=== PATIENT | male | born 1950 | race Caucasian/White ===

== ENCOUNTER → 2018-09-13 | Outpatient (CLI) | payer MEDICARE, BC ==
--- NOTE | 2018-09-14 08:30 | RADIOLOGY REPORT (SQ) ---
EXAM DESCRIPTION: MRI LT LOWER JOINT WITHOUT COMPLETED DATE/TIME: 09/13/2018 8:56 pm REASON FOR STUDY: M25.562 PAIN IN LEFT KNEE M25.562 PAIN IN LEFT KNEE COMPARISON: 06/21/2014 left knee MRI TECHNIQUE: Leftknee images acquired and stored on PACS. Multiplanar images include fat sensitive se quences as T1, water sensitive sequences as FST2 or STIR, cartilage sensitive sequences as FSPD, and gradient echo sequences. LIMITATIONS: None. FINDINGS: JOINT AND BURSAE: Physiologic joint space fluid in the suprapatellar recess. 10 mm loose body along the popliteus tendon sheath coronal image 25. 12 mm loose body along the posterior aspect medial tibial plateau on sagittal image 11 BONE CORTEX AND MARROW: No marrow signal abnormalities worrisome for aggressive marrow replacement pr ocess or occult fracture. ACL: Torn, best shown on sagittal image 17 PCL: Intact. MCL: Intact. No periligamentous edema or fluid. LCL: Intact. No periligamentous edema or fluid. MEDIAL MENISCUS: Diffusely degenerated, with only a small amount of residual meniscus along the midbo dy and posterior horn LATERAL MENISCUS: Diffusely small but intact. MEDIAL COMPARTMENT: High-grade chondromalacia with [id number] appearance medial compartment. Moder ate medial edge medial compartment bony spurring. LATERAL COMPARTMENT: Moderate chondromalacia lateral compartment. Small osteophytes along the latera l edge of the lateral compartment. PATELLA: Mild medial patellar facet chondromalacia. No subchondral cysts. Medial and lateral retinacu la intact. EXTENSOR MECHANISM: Intact. Quadriceps and patella tendons normal. SOFT TISSUES: Adjacent muscles and subcutaneous tissues normal. Normal flow void in popliteal artery and vein. OTHER: No other significant finding. 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
== END ==
LOC: RAD 20:02
PROVIDERS: ATTEND Orthopaedic Surgery Sports Medicine
DX: M25.562 Pain in left knee (principal); M22.42 Chondromalacia patellae, left knee

== ENCOUNTER 2019-06-19 09:09 | Day surgery (SDC) | payer OTHER, MEDICARE, BC ==
[~2019-06-19 09:09] MED LIST: CHONDR SU A NA/HYALUR INTRAOC KIT (SURGICARE) ONE; DORZOLAMIDE HCL 2%/TIMOLOL MALEAT 0.5% OPH SOLN 10 ML OD PRN; EPINEPHRINE INJ/PF 1 MG/1 ML AMPULE ONE; KETOROLAC TROMETHAMINE 0.45% 4 DROP/0.4 ML DROPERETTE OD PRN; LIDOCAINE 1% INJ-PF (10 MG/ML) 30 ML SDV ONE; TOBRAMYCIN SULFATE/DEXAMETH OPH OINTMENT 3.5 GM ONE
[2019-06-19] MEDS: BESIFLOXACIN HCL 0.6% OPH SUSP 5 ML BOTTLE OD PRN ×3 (10:08→10:56)
[2019-06-19] MEDS: TROPICAMIDE 1% OPH SOLN 15 ML OD PRN ×3 (10:08→10:26)
[2019-06-19] MEDS: CYCLOPENTOLATE 0.2%/PHENYLEPHRINE 1% OPH SOLN 2 ML OD PRN ×3 (10:08→10:27)
[2019-06-19] MEDS: TETRACAINE HCL 0.5% OPH SOLN 4 ML OD PRN ×3 (10:08→10:32)
[2019-06-19] MEDS ORDERED: FENTANYL CITRATE INJ/PF 100 MCG/2 ML AMPUL ONE (10:18)
[2019-06-19] MEDS ORDERED: MIDAZOLAM 2 MG/2 ML INJ ONE (10:18)
== END 2019-06-19 11:35 | disposition home or self-care (01) ==
LOC: SC 09:09
PROVIDERS: ATTEND Ophthalmology
DX: H25.11 Age-related nuclear cataract, right eye (principal); H40.1111 Primary open-angle glaucoma, right eye, mild stage; I10 Essential (primary) hypertension; E78.00 Pure hypercholesterolemia, unspecified; Z87.891 Personal history of nicotine dependence
CPT/HCPCS: 0191T; 66984; 140; J0171; J2250; J3010; J3490

== ENCOUNTER 2019-07-10 06:36 | Day surgery (SDC) | payer OTHER, MEDICARE, BC ==
[~2019-07-10 06:36] MED LIST changes: -CHONDR SU A NA/HYALUR INTRAOC KIT (SURGICARE) ONE; -DORZOLAMIDE HCL 2%/TIMOLOL MALEAT 0.5% OPH SOLN 10 ML OD PRN; -EPINEPHRINE INJ/PF 1 MG/1 ML AMPULE ONE; -KETOROLAC TROMETHAMINE 0.45% 4 DROP/0.4 ML DROPERETTE OD PRN; +KETOROLAC TROMETHAMINE 0.45% 4 DROP/0.4 ML DROPERETTE OS PRN; -LIDOCAINE 1% INJ-PF (10 MG/ML) 30 ML SDV ONE; -TOBRAMYCIN SULFATE/DEXAMETH OPH OINTMENT 3.5 GM ONE
[2019-07-10] MEDS ORDERED: FENTANYL CITRATE INJ/PF 100 MCG/2 ML AMPUL ONE (06:42)
[2019-07-10] MEDS ORDERED: MIDAZOLAM 2 MG/2 ML INJ ONE (06:42)
[2019-07-10] MEDS: BESIFLOXACIN HCL 0.6% OPH SUSP 5 ML BOTTLE OS PRN ×4 (07:00→07:47)
[2019-07-10] MEDS: TROPICAMIDE 1% OPH SOLN 15 ML OS PRN ×3 (07:00→07:20)
[2019-07-10] MEDS: TETRACAINE HCL 0.5% OPH SOLN 4 ML OS PRN ×3 (07:00→07:27)
[2019-07-10] MEDS: CYCLOPENTOLATE 0.2%/PHENYLEPHRINE 1% OPH SOLN 2 ML OS PRN ×3 (07:00→07:20)
[2019-07-10] MEDS ORDERED: EPINEPHRINE INJ/PF 1 MG/1 ML AMPULE ONE (07:10)
[2019-07-10] MEDS ORDERED: LIDOCAINE 1% INJ-PF (10 MG/ML) 30 ML SDV ONE (07:12)
[2019-07-10] MEDS ORDERED: CHONDR SU A NA/HYALUR INTRAOC KIT (SURGICARE) ONE (07:13)
[2019-07-10] MEDS: DORZOLAMIDE HCL 2%/TIMOLOL MALEAT 0.5% OPH SOLN 10 ML OS PRN ×2 (07:47)
[2019-07-10] MEDS: TOBRAMYCIN SULFATE/DEXAMETH OPH OINTMENT 3.5 GM ONE ×2 (07:47)
== END 2019-07-10 08:30 | disposition home or self-care (01) ==
LOC: SC 06:36
PROVIDERS: ATTEND Ophthalmology
DX: H25.12 Age-related nuclear cataract, left eye (principal); Z98.41 Cataract extraction status, right eye; H40.1131 Primary open-angle glaucoma, bilateral, mild stage; I10 Essential (primary) hypertension; E78.00 Pure hypercholesterolemia, unspecified; Z87.891 Personal history of nicotine dependence
CPT/HCPCS: 0191T; 66984; 142; C1783; J0171; J2250; J3010; J3490; V2632